=== PATIENT | female | born 1995 | race Caucasian/White ===

== ENCOUNTER 2017-03-08 20:42 | Emergency (ER) | payer OTHER, BC ==
[~2017-03-08] VITALS: Ht 165.1 cm; Wt 94.3 kg
[2017-03-08] MEDS ORDERED: PRENATAL1 TA3 PO (20:52)
[2017-03-08] MEDS ORDERED: CEFADROXIL500 M1 PO (21:01)
== END 2017-03-08 22:11 | disposition home or self-care (01) ==
LOC: ED 20:42
DX: S61.431A Puncture wound without foreign body of right hand, initial encounter (principal); Z79.899 Other long term (current) drug therapy; W26.0XXA Contact with knife, initial encounter; Y93.89 Activity, other specified; Y92.89 Other specified places as the place of occurrence of the external cause; Y99.9 Unspecified external cause status

== ENCOUNTER 2019-11-03 00:38 | Inpatient (IN) | payer OTHER ==
[~2019-11-03] VITALS: Ht 152.4 cm; Wt 90.3 kg
[~2019-11-03 00:38] MED LIST: CEFADROXIL500 M1 PO; PRENATAL1 TA3 PO
[2019-11-03 00:44] VITALS: BP 141/82
[2019-11-03 01:22] LABS: BASO % 0.3 % (0.0-1.0); EOS # 0.1 10*3/uL (0.0-0.4); EOS % 0.7 % (1.0-4.0); HEMATOCRIT 43.2 % (37.0-47.0); HEMOGLOBIN 13.8 g/dl (12.0-16.0); LYMPH # 3.2 10*3/uL (1.3-4.4); LYMPH % 25.6 % (27.0-41.0); MEAN CELL VOLUME 80.1 fl (81.0-99.0); MEAN CORPUSCULAR HGB 25.6 pg (27.0-31.0); MEAN CORPUSCULAR HGB CONC 31.9 g/dl (33.0-37.0); MEAN PLATELET VOLUME 11.1 fl (9.6-12.3); MONO # 1.1 10*3/uL (0.1-1.0); MONO % 8.7 % (3.0-9.0); NEUT # 7.9 10*3/uL (2.3-7.9); NEUT % 64.5 % (47.0-73.0); PLATELET COUNT AUTOMATED 349 10*3/uL (130-400); RED BLOOD COUNT 5.39 10*6/uL (4.10-5.10); RED CELL DISTRI WIDTH 15.9 % (0-14.5); WHITE BLOOD COUNT 12.3 10*3/uL (4.8-10.8)
[2019-11-03 01:36] LABS: ALBUMIN 3.3 gm/dl (3.1-4.5); ALKALINE PHOSPHATASE 104 U/L (45-117); BUN 16 mg/dl (7-24); CHLORIDE 107 mmol/L (98-107); CREATININE 1.09 mg/dL (0.55-1.02); LIPASE 117 U/L (73-393); SGOT/AST 11 IU/L (3-35); SGPT/ALT 19 U/L (12-78); SODIUM 139 mmol/L (136-145); TOTAL PROTEIN 7.4 gm/dL (6.4-8.2)
[2019-11-03 01:38] LABS: B-hCG (QUALITATIVE) NEGATIVE (NEGATIVE)
[2019-11-03 01:41] LABS: BILIRUBIN NEGATIVE (NEGATIVE); BLOOD 3+ (NEGATIVE); CLARITY CLEAR (CLEAR); COLOR STRAW (YELLOW); GLUCOSE NEGATIVE (NEGATIVE); KETONE NEGATIVE (NEGATIVE)
[2019-11-03 01:42] LABS: LEUKO ESTERASE 1+ (NEGATIVE); NITRITE NEGATIVE (NEGATIVE); UROBILINOGEN 0.2 E.U./dl (0.2-1.0)
[2019-11-03 01:44] LABS: BACTERIA 1+
[2019-11-03 04:03] VITALS: BP 119/86
--- NOTE | 2019-11-03 04:03 | NUR ---
A 24, admitted to ICCU, under the services of BILL Llaams DO with a diagnosis of pulmonary infarction and pulmonary emboli. Chief complaint is sharp stabbing pain lt side and back. Patient arrived via stretcher from ER. Monitor applied. Initial assessment completed. Vital signs taken and recorded. BILL LLAMAS DO notified of admission to the unit. Orders received. See assessment for past medical history, medications and allergies. Patient and/or family oriented to unit. [facility] ICCU visitation policy reviewed. Clothing/patient valuable form completed. YVETTE MCGHEE
[2019-11-03] MEDS ORDERED: NUVARING VAGIN1 EAC1 V (04:22)
--- NOTE | 2019-11-03 04:44 | NUR ---
PATIENT GIVEN DILAUDID FOR LEFT SIDED PAIN. PATIENT CRYING AND UNABLE TO SIT STILL DUE TO PAIN RATES IT 10/.
--- NOTE | 2019-11-03 05:43 | NUR ---
PATIENT RESTING QUIETLY IN BED IV FLUIDS INFUSING CURRENTLY. PAIN MEDICATION EFFECTIVE.
[2019-11-03 08:00] VITALS: BP 109/70
--- NOTE | 2019-11-03 08:01 | NUR ---
NORCO FOR C/O 07/03 LEFT SIDE PAIN
--- NOTE | 2019-11-03 11:36 | NUR ---
Spoke to [facility] Tosin and nurse, Britta, regarding transfer to [facility] [address]. After over an hour the patient nurse, Britta, and her tumbling and rolling supervisor state the patient does NOT require a precert as the insurance is an commercial [facility] Health Plan. [facility] will require an authorization as [facility] is an out of network facility. Spoke to Niru at [facility] Med Call who states patient does need a precert. Awaiting return call from [facility] case resource manager.
--- NOTE | 2019-11-03 11:53 | NUR ---
DILUADID FOR 10/10 LEFT LUNG PAIN
[2019-11-03 12:00] VITALS: BP 103/69
--- NOTE | 2019-11-03 12:15 | NUR ---
Received call from [facility] Pipe Straightener. Patient requires auth to go to [facility]. CM believes patient has a [facility] Health Plan but it is through [employer] [place]. Will call [employer] back.
--- NOTE | 2019-11-03 12:20 | NUR ---
AWAITING WORD ON TRANSFER CASE MANAGEMENT HAS SPOKEN IN LENGTH WITH [facility] INDUSTRIAL [employer] SERVICE HELPER
--- NOTE | 2019-11-03 13:09 | NUR ---
Spoke to Maureen at [facility] after an hour regarding transfer to [facility]. Maureen stated the patient does NOT need an auth to go to [place]. The insurance is a commercial [facility] Health Plan and not through [facility]. Call ref # [id number]. Spoke to Brady at [facility] Med Call regarding speaking to a CM at [place]. Awaiting return call.
--- NOTE | 2019-11-03 14:03 | NUR ---
Spoke to [facility] Med Call regarding speaking to Tricia COHN Awaiting return call from Sahra.
--- NOTE | 2019-11-03 14:38 | NUR ---
Spoke to [facility] Lavell Abreu regarding authorization. He states he attempted to reach case management and foster care case manager with no success. He will call me when case management is available.
--- NOTE | 2019-11-03 14:49 | NUR ---
Spoke to Janet from [facility] case management department. Explained [employer] states it is a commercial [facility] Health Plan, NOT a [employer] [place]. She states ok thanks for checking on that. Asked if patient is just waiting on a bed and she stated yes patient will wait on bed assignment. [facility] notified.
--- NOTE | 2019-11-03 15:36 | NUR ---
REPORT TO [id number] BED [id number] AWAITING TRANSPORT
--- NOTE | 2019-11-03 15:52 | NUR ---
DILUADID AT 1430 HAS BEEN EFFECTIVE
--- NOTE | 2019-11-03 15:54 | NUR ---
ECHO COMPLETED, COPY BEING MADE AWAITING US OF LOWER LEGS
[2019-11-03 16:00] VITALS: BP 110/56
--- NOTE | 2019-11-03 17:09 | NUR ---
LIFE TEAM HERE FOR PICKUP US LOWER LEGS HAS BEEN COMPLETED, AND IS + FOR DVT IN R DISTAL FEMEROL, THIS RESULTS WAS CALLED TO [facility], WITH REPORT TO BE FAXED DR DAINA CORONADO
--- NOTE | 2019-11-03 18:16 | NUR ---
RAD CALLED, US + DVT-FAXED REPORT TO [facility]
== END 2019-11-03 17:11 | disposition short-term general hospital (02) | DRG 176 ==
LOC: ED 00:38 → ICCU 03:31 → EDHOLD 03:31 → ICCU 03:42
PROVIDERS: Physician Assistant; ADMIT Emergency Medicine
DX: I26.99 Other pulmonary embolism without acute cor pulmonale (principal); R65.10 Systemic inflammatory response syndrome (SIRS) of non-infectious origin without acute organ dysfunction; E66.9 Obesity, unspecified; R07.89 Other chest pain; Z68.38 Body mass index [BMI] 38.0-38.9, adult

== ENCOUNTER → 2020-01-27 | Outpatient (CLI) | payer OTHER ==
[~2020-01-27] MED LIST changes: +NUVARING VAGIN1 EAC1 V
[2020-01-27 11:21] LABS: BASO % 0.6 % (0.0-1.0); EOS # 0.1 10*3/uL (0.0-0.4); EOS % 1.4 % (1.0-4.0); HEMATOCRIT 45.5 % (37.0-47.0); LYMPH # 2.1 10*3/uL (1.3-4.4); LYMPH % 32.9 % (27.0-41.0); MEAN CELL VOLUME 80.5 fl (81.0-99.0); MEAN CORPUSCULAR HGB 25.5 pg (27.0-31.0); MEAN CORPUSCULAR HGB CONC 31.6 g/dl (33.0-37.0); MEAN PLATELET VOLUME 11.1 fl (9.6-12.3); MONO # 0.4 10*3/uL (0.1-1.0); NEUT # 3.6 10*3/uL (2.3-7.9); NEUT % 57.6 % (47.0-73.0); PLATELET COUNT AUTOMATED 376 10*3/uL (130-400); RED BLOOD COUNT 5.65 10*6/uL (4.10-5.10); RED CELL DISTRI WIDTH 14.8 % (0-14.5); WHITE BLOOD COUNT 6.3 10*3/uL (4.8-10.8)
[2020-01-29 01:07] LABS: PTT-LA 39.6 sec (0.0-51.9)
[2020-01-29 08:09] LABS: DVVTMIXRFX CHG; LUPUS DRVVT 59.9 sec (0.0-47.0)
[2020-01-29 09:05] LABS: LUPUS REFLEX INTERPRETATION Comment: (.)
== END | disposition home or self-care (01) ==
LOC: LAB 10:51
PROVIDERS: Internal Medicine Hematology & Oncology
DX: T38.4X5A Adverse effect of oral contraceptives, initial encounter (principal); I82.401 Acute embolism and thrombosis of unspecified deep veins of right lower extremity; I26.99 Other pulmonary embolism without acute cor pulmonale; D68.62 Lupus anticoagulant syndrome